=== PATIENT | female | born 1945 | race Caucasian/White ===

== ENCOUNTER 2016-11-10 17:36 | Emergency (ER) | payer OTHER, MEDICARE ==
[~2016-11-10] VITALS: Ht 167.6 cm; Wt 75.6 kg
[2016-11-10] MEDS ORDERED: ASPI-515 PO (18:12)
[2016-11-10] MEDS ORDERED: METH750T2 PO (18:12)
[2016-11-10] MEDS ORDERED: ATOR20TA PO (18:12)
[2016-11-10] MEDS ORDERED: B CO1TAB12 PO (18:12)
[2016-11-10] MEDS ORDERED: HYDR25TA11 PO (18:12)
[2016-11-10] MEDS ORDERED: NAPR-874 PO (18:12)
[2016-11-10] MEDS ORDERED: MIRA50TA PO (18:12)
[2016-11-10] MEDS ORDERED: HYDR-3144 PO (18:12)
[2016-11-10] MEDS ORDERED: LEVO112T2 PO (18:12)
[2016-11-10] MEDS ORDERED: ACETAMINOPHEN 500 MG TABLET PO ONE (18:30)
[2016-11-10] MEDS ORDERED: ACETAMINOPHEN 500 MG TABLET ONE (18:45)
[2016-11-10] MEDS: PLEASE ENTER ALLERGIES MC SCH ×4 (18:49→18:53)
[2016-11-10 18:54] LABS: BLOOD UREA NITROGEN 12 mg/dL (7-18)
[2016-11-10 18:57] LABS: ASPARTATE AMINO TRANSFERASE 20 U/L (15-37)
[2016-11-10 19:47] LABS: PATH.CAST-FLAG NOT PRESENT; SPERM-FLAG NOT PRESENT; SRC-FLAG NOT PRESENT; XTAL-FLAG NOT PRESENT; YLC-FLAG NOT PRESENT
[2016-11-10 20:41] VITALS: BP 137/75
== END 2016-11-10 20:44 | disposition home or self-care (01) ==
LOC: ED 20:00
DX: J20.8 Acute bronchitis due to other specified organisms (principal); B97.89 Other viral agents as the cause of diseases classified elsewhere; J01.00 Acute maxillary sinusitis, unspecified; Z87.891 Personal history of nicotine dependence
CPT/HCPCS: 36415; 71010; 80053; 81001; 83605; 84145; 85025; 87040; 93005

== ENCOUNTER 2016-11-17 13:25 | Emergency (ER) | payer MEDICARE, OTHER ==
[~2016-11-17] VITALS: Ht 160 cm; Wt 76.2 kg
[~2016-11-17 13:25] MED LIST: ASPI-515 PO; ATOR20TA PO; B CO1TAB12 PO; HYDR-3144 PO; HYDR25TA11 PO; LEVO112T2 PO; METH750T2 PO; MIRA50TA PO; NAPR-874 PO
[2016-11-17 13:31] VITALS: BP 107/66
[2016-11-17] MEDS ORDERED: PROMETHAZINE/COD. 10MG/6.25MG/5 ML ORAL SOL PO PRN (14:30)
[2016-11-17 15:04] LABS: ASPARTATE AMINO TRANSFERASE 20 U/L (15-37); BLOOD UREA NITROGEN 16 mg/dL (7-18)
[2016-11-17 15:10] LABS: IS PT STATUS REG ER OR PRE ER? YES
== END 2016-11-17 16:26 | disposition home or self-care (01) ==
LOC: ED 14:11
DX: J20.9 Acute bronchitis, unspecified (principal)
CPT/HCPCS: 36415; 71010; 80053; 83605; 84484; 85025; 99285

== ENCOUNTER 2016-12-15 19:15 | Emergency (ER) | payer MEDICARE, OTHER ==
[~2016-12-15] VITALS: Ht 160 cm; Wt 76.7 kg
[2016-12-15] MEDS ORDERED: ALBUTEROL/IPRATROPIUM 2.5MG/0.5MG, 3 ML ONE (20:29)
[2016-12-15] MEDS ORDERED: ALBUTEROL/IPRATROPIUM 2.5MG/0.5MG, 3 ML NPPB ONE (20:30)
[2016-12-15 21:01] VITALS: BP 101/56
== END 2016-12-15 20:20 | disposition home or self-care (01) ==
LOC: ED 20:14
DX: J20.8 Acute bronchitis due to other specified organisms (principal)
CPT/HCPCS: 71010; 94640; J7620

== ENCOUNTER → 2017-02-20 | Outpatient (CLI) | payer MEDICARE | END | disposition home or self-care (01) | LOC: CFH 13:22 | PROVIDERS: ATTEND Obstetrics & Gynecology | DX: Z12.31 Encounter for screening mammogram for malignant neoplasm of breast (principal); Z13.820 Encounter for screening for osteoporosis | CPT/HCPCS: 77080; G0202 ==

== ENCOUNTER → 2020-11-17 | Outpatient (CLI) | payer MEDICARE ==
[~2020-11-17] MED LIST changes: -ASPI-515 PO; +ASPI-963 PO; -B CO1TAB12 PO; +B CO1TAB14 PO; -HYDR-3144 PO; +HYDR-826 PO; +HYDR1TAB53 PO; -HYDR25TA11 PO; +METH-640 PO; -METH750T2 PO; +NAPR-872 PO; -NAPR-874 PO
== END | disposition home or self-care (01) ==
LOC: PETCFH 11:22
PROVIDERS: ATTEND Student in an Organized Health Care Education/Training Program
DX: R63.8 Other symptoms and signs concerning food and fluid intake (principal); G30.9 Alzheimer's disease, unspecified; G31.9 Degenerative disease of nervous system, unspecified
CPT/HCPCS: 78608; A9552